=== PATIENT | male | born 1965 | race Caucasian/White ===

== ENCOUNTER 2021-07-06 13:22 | Outpatient (RCR) | payer OTHER, SELFPAY ==
[2021-07-06] MEDS: FAMOTIDINE 20 MG TABLET PO (15:02)
[2021-07-06] MEDS: diphenhydrAMINE HCl CAP 25 MG CAPSULE PO (15:02)
[2021-07-06] MEDS: ACETAMINOPHEN 325 MG TABLET 650 MG PO (15:02)
[2021-07-06 15:10] VITALS: BP 126/73; PULSE 71; RESP 20; TEMP 36.3; O2SAT 99
== END 2021-07-06 17:00 | disposition home or self-care (01) ==
LOC: AMCINF 13:22
PROVIDERS: PCP Internal Medicine; Referring Provider Internal Medicine; Visit Provider Internal Medicine Hematology & Oncology
DX: U07.1 COVID-19 (principal); G61.0 Guillain-Barre syndrome
CPT/HCPCS: A9270; M0247